=== PATIENT | male | born 1940 | race Caucasian/White ===

== ENCOUNTER 2017-10-29 10:54 | Outpatient (CLI) | payer MEDICARE ==
--- NOTE | 2017-10-29 11:57 | XRAY Report ---
Procedure Date: 10/29/2017 Accession Number: [id number] / [id number] Procedure: XR - Forearm RT CPT Code: FULL RESULT: EXAM: Forearm RT DATE: 10/29/2017 11:21 AM CLINICAL HISTORY: R WRIST FOREARM PAIN COMPARISON: None. TECHNIQUE: 2 views. FINDINGS: Bones: Normal. No fractures or bone lesions. Joints: Visualized portions of the wrist and elbow joints are unremarkable. Soft Tissues: Normal. No soft tissue swelling. IMPRESSION: Normal forearm radiography. [facility]
--- NOTE | 2017-10-29 11:58 | XRAY Report ---
Procedure Date: 10/29/2017 Accession Number: [id number] Procedure: XR - Wrist 3 View RT CPT Code: FULL RESULT: EXAM: Wrist 3 View RT DATE: 10/29/2017 11:12 AM CLINICAL HISTORY: WRIST PAIN COMPARISON: None. TECHNIQUE: 3 views. FINDINGS: Bones: Normal. No fractures or bone lesions. Joints: Normal. No subluxations. Soft Tissues: Normal. No soft tissue swelling. IMPRESSION: Normal wrist radiography. [facility]
== END 2017-10-29 10:55 | disposition home or self-care (01) ==
LOC: DI 10:54
PROVIDERS: ATTEND Internal Medicine
DX: M25.531 Pain in right wrist (principal); M79.631 Pain in right forearm